=== PATIENT | female | born 1960 | race Caucasian/White ===

== ENCOUNTER 2018-03-21 17:25 | Emergency (ER) | payer BC, OTHER ==
[2018-03-21 18:57] LABS: Protime INR 0.96
[2018-03-21 18:59] LABS: Absolute Lymphocytes (CBC) 1.6 K/uL (0.7-4.9); Absolute Monocytes 0.4 K/uL (0.1-1.3); Absolute Neutrophil 2.8 K/uL (1.8-8.0); Eosinophils % 3.2 % (0-4.4); Hematocrit 37.8 % (36.0-45.0); Lymphocytes % 32.3 % (15.3-44.8); MCH 27.7 pg (27.0-35.0); MPV 8.5 fL (7.6-11.3); Monocytes % 8.7 % (3.3-12.3)
[2018-03-21 19:07] LABS: Bicarbonate 24 mEq/L (21-31); Glucose Level 101 mg/dL (65-120); Potassium 4.2 mEq/L (3.6-5.0); Sodium Level 139 mEq/L (135-145)
[2018-03-21 19:13] LABS: ALT/SGPT 16 IU/L (10-60); AST/SGOT 19 IU/L (10-42); Albumin 4.3 g/dL (3.2-5.5); Alkaline Phosphatase 145 IU/L (42-121); BUN Blood Urea Nitrogen 22 mg/dL (6-20); Bilirubin Direct < 0.1 mg/dL (0-0.2); Bilirubin Total 0.2 mg/dL (0.3-1.2); Magnesium 2.2 mg/dL (1.8-2.5); Protein, Total 7.7 g/dL (6.0-8.3)
--- NOTE | 2018-03-21 20:05 | RAD REPORT ---
EXAM DESCRIPTION: RAD - Chest Single View - 03/21/2018 6:13 pm CLINICAL HISTORY: Chest pain and chest pressure, left arm discomfort COMPARISON: April 2010 TECHNIQUE: AP portable chest image was obtained 1802 hours . FINDINGS: No failure, infiltrate or focal mass lesion. Interstitial markings are prominent, accentua juan by shallow inspiration. Heart and vasculature are normal. No measurable pleural effusion and no p neumothorax. No gross bony abnormality seen. No acute aortic findings suspected. IMPRESSION: Prominent interstitial markings accentuated by shallow inspiration. Minimal interstitial edema or infiltrate could be masked.
--- NOTE | 2018-03-21 20:40 | RAD REPORT ---
EXAM DESCRIPTION: CT - Head Brain Wo Cont - 03/21/2018 8:32 pm CLINICAL HISTORY: Syncope COMPARISON: None. TECHNIQUE: Axial 5 mm thick images of the head were obtained without IV contrast. All CT scans are performed using dose optimization technique as appropriate and may include automated exposure control or mA/KV adjustment according to patient size. FINDINGS: No intracranial hemorrhage, mass, edema or shift of mid-line structures. No acute infarcti on changes seen. No abnormal extra-axial fluid collections. Ventricles are normal. Mastoid air cells and visualized portions of the paranasal sinuses are clear. No acute bony findings. IMPRESSION: Negative non-contrast CT head examination.
[2018-03-21] MEDS ORDERED: METOCLOPRAMIDE 10 MG/2mL INJ ONE (20:56)
[2018-03-21] MEDS ORDERED: DIPHENHYDRAMINE 50 MG/ML VIAL ONE (20:56)
--- NOTE | 2018-03-21 21:40 | EDPHYS ---
Physician Documentation [facility] Name: Damon Kaufman Age: 58 yrs Sex: Female : 1960 Arrival Date: 03/21/2018 Time: 17:26 Bed 24 Private MD: out of town, doctor ED Physician Zhou Hough HPI: 03/21 19:13 This 58 yrs old Female presents to ER via Wheelchair with complaints of Chest jr8 Pain. 19:13 The patient or guardian reports chest pain that is located primarily in the substernal jr8 area. Onset: acutely, today. The pain radiates to the left arm. Associated signs and symptoms: The patient has no apparent associated signs or symptoms. The chest pain is described as a pressure. Duration: The patient or guardian reports multiple episodes, the episodes last approximately 2 minute(s). Modifying factors: The symptoms are alleviated by nothing. the symptoms are aggravated by nothing. Severity of pain: At its worst the pain was mild in the emergency department the pain is unchanged. The patient has experienced a previous episode. The patient has not recently seen a physician. 20:15 Family stated that during these episodes noticed that patient was not talking and would jr8 stair off into space and would not respond. Patient dose not remember these episodes but did notice that she felt weak and tired afterwards . Historical: - Allergies: 17:39 PENICILLINS; aj 17:39 Latex, Natural Rubber; aj 17:39 Sulfa (Sulfonamide Antibiotics); aj - Home Meds: 17:39 topiramate 50 mg oral tab 1 tab 2 times per day [Active]; aj triamterene-hydrochlorothiazid 37.5-25 mg Oral tab 1 tab once daily [Active]; potassium chloride 10 mEq Oral cpER 1 cap once daily [Active]; trazodone 100 mg Oral tab 1 tab 2 times per day [Active]; - PMHx: 17:39 lymphedema; Anemia; Depression; Anxiety; aj - PSHx: 17:39 gastric bypass; Hysterectomy; aj - Immunization history:: Adult Immunizations up to date. - Social history:: Smoking status: Patient/guardian denies using tobacco. - Ebola Screening: : Patient negative for fever greater than or equal to 101.5 degrees Fahrenheit, and additional compatible Ebola Virus Disease symptoms Patient denies exposure to infectious person Patient denies travel to an Ebola-affected area in the 21 days before illness onset No symptoms or risks identified at this time. ROS: 19:13 Eyes: Negative for injury, pain, redness, and discharge, ENT: Negative for injury, jr8 pain, and discharge, Neck: Negative for injury, pain, and swelling, Respiratory: Negative for shortness of breath, cough, wheezing, and pleuritic chest pain, Abdomen/GI: Negative for abdominal pain, nausea, vomiting, diarrhea, and constipation, Back: Negative for injury and pain, MS/Extremity: Negative for injury and deformity, Skin: Negative for injury, rash, and discoloration. 19:13 Cardiovascular: Positive for chest pain, Negative for edema, orthopnea, palpitations, paroxysmal nocturnal dyspnea. 20:15 Neuro: Positive for altered mental status, headache. jr8 Exam: 19:13 Eyes: Pupils equal round and reactive to light, extra-ocular motions intact. Lids and jr8 lashes normal. Conjunctiva and sclera are non-icteric and not injected. Cornea within normal limits. Periorbital areas with no swelling, redness, or edema. ENT: Nares patent. No nasal discharge, no septal abnormalities noted. Tympanic membranes are normal and external auditory canals are clear. Oropharynx with no redness, swelling, or masses, exudates, or evidence of obstruction, uvula midline. Mucous membranes moist. Neck: Trachea midline, no thyromegaly or masses palpated, and no cervical lymphadenopathy. Supple, full range of motion without nuchal rigidity, or vertebral point tenderness. No Meningismus. Cardiovascular: Regular rate and rhythm with a normal S1 and S2. No gallops, murmurs, or rubs. Normal PMI, no JVD. No pulse deficits. Respiratory: Lungs have equal breath sounds bilaterally, clear to auscultation and percussion. No rales, rhonchi or wheezes noted. No increased work of breathing, no retractions or nasal flaring. Abdomen/GI: Soft, non-tender, with normal bowel sounds. No distension or tympany. No guarding or rebound. No evidence of tenderness throughout. Back: No spinal tenderness. No costovertebral tenderness. Full range of motion. Skin: Warm, dry with normal turgor. Normal color with no rashes, no lesions, and no evidence of cellulitis. MS/ Extremity: Pulses equal, no cyanosis. Neurovascular intact. Full, normal range of motion. Neuro: Awake and alert, GCS 15, oriented to person, place, time, and situation. Cranial nerves II-XII grossly intact. Motor strength 5/5 in all extremities. Sensory grossly intact. Cerebellar exam normal. Normal gait. Vital Signs: 17:39 BP 129 / 77; Pulse 91; Resp 20; Temp 99.7; Pulse Ox 99% on R/A; Weight 108.86 kg; aj Height 5 ft. 8 in. (172.72 cm); 18:51 BP 121 / 68; Pulse 77; Resp 18; Pulse Ox 99% ; tl3 20:10 BP 111 / 69; Pulse 70; Resp 18; Pulse Ox 99% on R/A; tl3 21:11 BP 123 / 78; Pulse 78; Resp 16; Pulse Ox 99% on R/A; tl3 22:07 BP 101 / 77; Pulse 99; Resp 18; Pulse Ox 99% ; tl3 17:39 Body Mass Index 36.49 (108.86 kg, 172.72 cm) aj MDM: 17:58 Patient medically screened. jr8 20:15 The patient was not given aspirin in the Emergency Department. Patient reports taking jr8 aspirin within the past 24 hours. Data reviewed: vital signs, nurses notes, lab test result(s), EKG, radiologic studies, CT scan, plain films. 21:15 Differential diagnosis: acute myocardial infarction, chest wall pain, esophagitis, jr8 gastritis, gastroesophageal reflux disease (GERD), pneumonia, pulmonary embolus, stable angina, thoracic aortic disection, unstable angina, seizures, TIA. 21:33 ED course: Patient still asymptomatic while in ED and upon reexamination. Discussed jr8 with patient that she needs to follow up with family medicine and neurology. That she needs to be on daily 325 mg aspirin until told otherwise by neurology. That she needs to be worked up for both seizure and TIA to rule them either in or out. To come back if she worsens. Daughter with be with patient tonight and throughout weekend. Good with instructions and will follow up or come back . 03/21 17:58 Order name: Basic Metabolic Panel; Complete Time: 19:14 jr8 03/21 17:58 Order name: BNP; Complete Time: 19:18 jr8 03/21 17:58 Order name: CBC with Diff; Complete Time: 19:19 03/21 17:58 Order name: LFT's; Complete Time: 19:14 03/21 17:58 Order name: Magnesium; Complete Time: 19:14 03/21 17:58 Order name: PT-INR; Complete Time: 19:08 03/21 17:58 Order name: Troponin (emerg Dept Use Only); Complete Time: 19:14 03/21 17:58 Order name: XRAY Chest (1 view); Complete Time: 20:06 03/21 19:52 Order name: Troponin (emerg Dept Use Only); Complete Time: 21:29 03/21 20:14 Order name: CT Head Brain wo Cont; Complete Time: 20:51 03/21 21:22 Order name: Urine Dipstick--Ancillary (enter results) [facility] 03/21 21:23 Order name: Urine Dipstick-Ancillary; Complete Time: 13:39 EDMS 03/21 17:58 Order name: EKG; Complete Time: 17:59 03/21 17:58 Order name: Cardiac monitoring; Complete Time: 18:49 03/21 17:58 Order name: EKG - Nurse/Tech; Complete Time: 18:49 03/21 17:58 Order name: IV Saline Lock; Complete Time: 18:49 03/21 17:58 Order name: Labs collected and sent; Complete Time: 18:49 03/21 17:58 Order name: O2 Per Protocol; Complete Time: 18:49 03/21 17:58 Order name: O2 Sat Monitoring; Complete Time: 18:49 03/21 17:58 Order name: Urine Dipstick-Ancillary (obtain specimen); Complete Time: 21:09 Administered Medications: 21:09 Drug: Reglan 10 mg Route: IVP; Infused Over: 3 mins; Site: right antecubital; tl3 22:26 Follow up: Response: No adverse reaction tl3 21:09 Drug: Benadryl 25 mg Route: IVP; Infused Over: 3 mins; Site: right antecubital; tl3 22:26 Follow up: Response: No adverse reaction tl3 Disposition: 03/21/18 21:39 Discharged to Home. Impression: Chest pain, unspecified, Altered mental status, unspecified. - Condition is Stable. - Discharge Instructions: Nonspecific Chest Pain, Nonepileptic Seizures, Transient Ischemic Attack, Aspirin and Your Heart. - Medication Reconciliation Form, Thank You Letter, Antibiotic Education, Prescription Opioid Use, Work release form form. - Follow up: Dirk Patel MD; When: 1 - 2 days; Reason: Recheck today's complaints, Continuance of care, Re-evaluation by your physician. - Problem is new. - Symptoms have improved. - Notes: Daily 325mg aspirin Pepcid OTC 20mg Daily Addendum: 03/23/2018 06:59 Co-signature as Attending Physician, Zohu Hough MD I agree with the assessment and k dr plan of care. Signatures: Dispatcher [employer] EDVonda Mckeon, RN Zhou Cho MD MD [facility] Victor Hugo Allen PA PA jr8 Cami Girard RN RN tl3 Corrections: (The following items were deleted from the chart) 03/21 20:16 19:13 Eyes: Negative for injury, pain, redness, and discharge, ENT: Negative for jr8 injury, pain, and discharge, Neck: Negative for injury, pain, and swelling, Respiratory: Negative for shortness of breath, cough, wheezing, and pleuritic chest pain, Abdomen/GI: Negative for abdominal pain, nausea, vomiting, diarrhea, and constipation, Back: Negative for injury and pain, MS/Extremity: Negative for injury and deformity, Skin: Negative for injury, rash, and discoloration, Neuro: Negative for headache, weakness, numbness, tingling, and seizure, jr8 22:28 21:39 03/21/2018 21:39 Discharged to Home. Impression: Chest pain, unspecified; Altered tl3 mental status, unspecified. Condition is Stable. Forms are Medication Reconciliation Form, Thank You Letter, Antibiotic Education, Prescription Opioid Use. Follow up: Dirk Patel; When: 1 - 2 days; Reason: Recheck today's complaints, Continuance of care, Re-evaluation by your physician. Problem is new. Symptoms have improved. jr8
--- NOTE | 2018-03-21 21:40 | ER ---
Nurse's Notes [facility] Name: Damon Kaufman Age: 58 yrs Sex: Female : 1960 Arrival Date: 03/21/2018 Time: 17:26 Bed 24 Private MD: out of town, doctor Diagnosis: Chest pain, unspecified;Altered mental status, unspecified Presentation: 03/21 17:36 Presenting complaint: Patient states: Chest pressure, left arm discomfort, "blacking aj out". Transition of care: patient was not received from another setting of care. Onset of symptoms was March 21, 2018. Risk Assessment: Do you want to hurt yourself or someone else? Patient reports no desire to harm self or others. Care prior to arrival: None. 17:36 Method Of Arrival: Wheelchair aj 17:36 Acuity: RHONDA 3 aj 22:27 Initial Sepsis Screen: Does the patient meet any 2 criteria? No. Patient's initial tl3 sepsis screen is negative. Does the patient have a suspected source of infection? No. Patient's initial sepsis screen is negative. Triage Assessment: 17:39 General: Appears in no apparent distress. comfortable, Behavior is calm, cooperative, aj appropriate for age. Pain: Complains of pain in chest. Cardiovascular: Reports chest pain, lightheadedness. Respiratory: Airway is patent Trachea midline Respiratory effort is even, unlabored, Respiratory pattern is regular, symmetrical. Derm: Skin is intact, is healthy with good turgor, Skin is pink, warm \\T\\ dry. normal. Historical: - Allergies: 17:39 PENICILLINS; aj 17:39 Latex, Natural Rubber; aj 17:39 Sulfa (Sulfonamide Antibiotics); aj - Home Meds: 17:39 topiramate 50 mg oral tab 1 tab 2 times per day [Active]; aj triamterene-hydrochlorothiazid 37.5-25 mg Oral tab 1 tab once daily [Active]; potassium chloride 10 mEq Oral cpER 1 cap once daily [Active]; trazodone 100 mg Oral tab 1 tab 2 times per day [Active]; - PMHx: 17:39 lymphedema; Anemia; Depression; Anxiety; aj - PSHx: 17:39 gastric bypass; Hysterectomy; aj - Immunization history:: Adult Immunizations up to date. - Social history:: Smoking status: Patient/guardian denies using tobacco. - Ebola Screening: : Patient negative for fever greater than or equal to 101.5 degrees Fahrenheit, and additional compatible Ebola Virus Disease symptoms Patient denies exposure to infectious person Patient denies travel to an Ebola-affected area in the 21 days before illness onset No symptoms or risks identified at this time. Screenin:08 Abuse screen: Denies threats or abuse. Nutritional screening: No deficits noted. tl3 Tuberculosis screening: No symptoms or risk factors identified. Fall Risk None identified. Assessment: 18:08 General: Appears comfortable, obese, well groomed, well developed, well nourished, tl3 Behavior is calm, cooperative, appropriate for age, flat. Pain: Complains of pain in chest Pain radiates to left arm shoulder and jaw. Neuro: Level of Consciousness is awake, alert, obeys commands, Oriented to person, place, time, situation, Appropriate for age. Neuro: Reports daughter describes mothers affect during episode as being "eyes open but did not respond to me for a minute or so". Cardiovascular: Reports chest pain, shortness of breath, since 2 episodes today, the first was about 45 seconds long as witnessed by her daughter and the second one lasted 1-2 minutes Heart tones S1 S2 present Patient's skin is warm and dry. Respiratory: Airway is patent Respiratory effort is even, unlabored, Respiratory pattern is regular, symmetrical, Breath sounds are clear bilaterally. GI: No deficits noted. No signs and/or symptoms were reported involving the gastrointestinal system. : No deficits noted. No signs and/or symptoms were reported regarding the genitourinary system. EENT: No deficits noted. No signs and/or symptoms were reported regarding the EENT system. Derm: No deficits noted. No signs and/or symptoms reported regarding the dermatologic system. 18:43 Reassessment:. tl3 18:51 Reassessment: Patient and/or family updated on plan of care and expected duration. Pain tl3 level reassessed. Patient is alert, oriented x 3, equal unlabored respirations, skin warm/dry/pink. pt is talking and smiling, interacting much better with daughter. 20:10 Reassessment: No changes from previously documented assessment. Patient and/or family tl3 updated on plan of care and expected duration. Pain level reassessed. Patient is alert, oriented x 3, equal unlabored respirations, skin warm/dry/pink. 21:11 Reassessment: Patient appears in no apparent distress at this time. No changes from tl3 previously documented assessment. Patient and/or family updated on plan of care and expected duration. Pain level reassessed. Patient is alert, oriented x 3, equal unlabored respirations, skin warm/dry/pink. pt resting quietly, no needs at this time. 22:07 Reassessment: Patient appears in no apparent distress at this time. No changes from tl3 previously documented assessment. Patient and/or family updated on plan of care and expected duration. Pain level reassessed. Patient is alert, oriented x 3, equal unlabored respirations, skin warm/dry/pink. 22:28 Pain: Pain began suddenly. tl3 Vital Signs: 17:39 BP 129 / 77; Pulse 91; Resp 20; Temp 99.7; Pulse Ox 99% on R/A; Weight 108.86 kg; aj Height 5 ft. 8 in. (172.72 cm); 18:51 BP 121 / 68; Pulse 77; Resp 18; Pulse Ox 99% ; tl3 20:10 BP 111 / 69; Pulse 70; Resp 18; Pulse Ox 99% on R/A; tl3 21:11 BP 123 / 78; Pulse 78; Resp 16; Pulse Ox 99% on R/A; tl3 22:07 BP 101 / 77; Pulse 99; Resp 18; Pulse Ox 99% ; tl3 17:39 Body Mass Index 36.49 (108.86 kg, 172.72 cm) ED Course: 17:26 Patient arrived in ED. mr 17:26 out of town, doctor is Private Physician. mr 17:37 Triage completed. aj 17:39 Arm band placed on right wrist. Patient placed in an exam room. aj 17:54 Cami Girard, KIMBERLY is Primary Nurse. tl3 17:58 Victor Hugo Allen PA is PHCP. jr8 17:58 Zhou Hough MD is Attending Physician. jr8 18:08 Patient has correct armband on for positive identification. Bed in low position. Call tl3 light in reach. Side rails up X 1. Adult w/ patient. sole ruffer on. Pulse ox on. NIBP on. Warm blanket given. 18:08 No provider procedures requiring assistance completed. Patient maintains SpO2 tl3 saturation greater than 95% on room air. 18:08 X-ray(s) taken. tl3 18:10 X-ray completed. Portable x-ray completed in exam room. Patient tolerated procedure jb2 well. 18:11 XRAY Chest (1 view) In Process Unspecified. EDMS 18:13 EKG done, by bindery technician. reviewed by Victor Hugo ZAVALA. sm3 18:43 Inserted saline lock: 20 gauge in right antecubital area, using aseptic technique. tl3 Blood collected. 20:[address] vr 20:32 CT completed. Patient tolerated procedure well. Patient moved back from CT. nj 20:32 CT Head Brain wo Cont In Process Unspecified. EDMS 21:39 Dirk Patel MD is Referral Physician. jr8 22:07 IV discontinued, intact, bleeding controlled, No redness/swelling at site. Pressure tl3 dressing applied. 22:28 Urine Dipstick--Ancillary (enter results) Sent. tl3 Administered Medications: 21:09 Drug: Reglan 10 mg Route: IVP; Infused Over: 3 mins; Site: right antecubital; tl3 22:26 Follow up: Response: No adverse reaction tl3 21:09 Drug: Benadryl 25 mg Route: IVP; Infused Over: 3 mins; Site: right antecubital; tl3 22:26 Follow up: Response: No adverse reaction tl3 Outcome: 21:39 Discharge ordered by . jr8 22:07 Discharged to home ambulatory. tl3 22:07 Condition: stable 22:07 Discharge instructions given to patient, family, Instructed on discharge instructions, follow up and referral plans. medication usage, Demonstrated understanding of instructions, follow-up care, medications. 22:28 Patient left the ED. tl3 Signatures: Dispatcher [employer] EDMS Vonda Schmidt, Susan James RN PrinceKonstantin Victoria vr Roszak, Josh, PA PA jr8 Vladimir Silva Tammy, RN RN tl3 Karuna Blair 3
[2018-03-21 22:22] LABS: Urine Blood NEGATIVE (NEG); Urine Glucose NEGATIVE (NEG); Urine Protein NEGATIVE (NEG); Urine Specific Gravity 1.025 (1.005-1.030); Urine pH 5.5 (5.0-7.0)
--- NOTE | 2018-03-21 23:00 | EKG ---
Test Date: 2018-03-21 Test Time: 18:04:33 Schedule Announcer: DEYANIRA MEASUREMENT RESULTS: Intervals: Rate: 77 CO: 182 QRSD: 76 QT: 398 QTc: 450 [place]: P: 63 CO: 182 QRS: 49 T: 39 INTERPRETIVE STATEMENTS: Normal sinus rhythm Normal ECG No previous ECG available for comparison Electronically Signed On 03-21-18 22:59:33 CDT by Osmani Hooper
== END 2018-03-21 22:28 | disposition home or self-care (01) ==
LOC: ER 17:25
DX: R41.82 Altered mental status, unspecified (principal); F41.9 Anxiety disorder, unspecified; F32.9 Major depressive disorder, single episode, unspecified; Z88.0 Allergy status to penicillin; Z88.2 Allergy status to sulfonamides; Z91.040 Latex allergy status
CPT/HCPCS: 36415; 70450; 71045; 80048; 80076; 81003; 83735; 83880; 84484; 85025; 85610; 93005; 96374; 96375; 99285; J2765